=== PATIENT | female | born 1955 | race Caucasian/White ===

== ENCOUNTER 2017-10-05 13:38 | Emergency (ER) | payer SELFPAY ==
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
[2017-10-05] MEDS ORDERED: NOREPINEPHRINE BITARTRATE INJ/PF 4 MG/4 ML SDV IV ONE (14:00)
--- NOTE | 2017-10-05 14:16 | RADIOLOGY REPORT (SQ) ---
EXAM DESCRIPTION: CHEST SINGLE VIEW COMPLETED DATE/TIME: 10/05/2017 2:08 pm REASON FOR STUDY: post arrest , intubation COMPARISON: 03/26/2013. EXAM PARAMETERS: NUMBER OF VIEWS: One view. TECHNIQUE: Single frontal radiographic view of the chest acquired. RADIATION DOSE: NA LIMITATIONS: None. FINDINGS: LUNGS AND PLEURA: Diffuse hazy opacity throughout both lungs, slightly more prominent in t he left lower lobe. No large pleural effusion. No pneumothorax. MEDIASTINUM AND HILAR STRUCTURES: No masses. Contour normal. HEART AND VASCULAR STRUCTURES: Heart normal in size. Normal vasculature. BONES: No acute findings. HARDWARE: Endotracheal tube with the tip located 3 cm proximal to the jose francisco. OTHER: No other significant finding. IMPRESSION: ENDOTRACHEAL TUBE IN SATISFACTORY POSITION. DIFFUSE HAZY OPACITY THROUGHOUT BOTH LUNGS, POSSIBLY DUE TO PULMONARY EDEMA. UNDERLYING PNEUMONIA, PARTICULARLY IN THE LEFT LOWER LOBE, ALSO PO SSIBLE. TECHNICAL DOCUMENTATION: JOB ID: [id number] [employer]- All Rights Reserved Reading location - IP/workstation name: [email or web address]
[2017-10-05] MEDS ORDERED: PROPOFOL 0 MG/0 ML INFUS..BTL IV ONE (14:20)
[2017-10-05] MEDS ORDERED: MIDAZOLAM HCL 50 MG/100 ML RTUINJ ONE (14:22)
[2017-10-05 14:23] LABS: HEMATOCRIT 43.6 % (36.0-47.0); HEMOGLOBIN 13.8 g/dL (12.0-15.5); MEAN CORPUSCULAR HGB CONC 31.6 g/dL (32.0-36.0); MEAN CORPUSCULAR VOLUME 98 fl (80-97); PLATELET COUNT 172 10^3/uL (150-450); RED BLOOD COUNT 4.45 10^6/uL (3.72-5.28); RED CELL DISTRIBUTION WIDTH 15.1 % (11.5-14.0); WHITE BLOOD COUNT 13.8 10^3/uL (4.0-10.5)
[2017-10-05 14:25] LABS: VENOUS BLOOD HCO3 17.4 mmol/L (20-32); VENOUS BLOOD PCO2 47.9 mmHg (35-63)
[2017-10-05 14:27] LABS: VENOUS BLOOD PH 7.18 (7.30-7.42)
[2017-10-05] MEDS ORDERED: FENTANYL CITRATE INJ/PF 100 MCG/2 ML AMPUL ONE ×2 (14:28→15:10)
[2017-10-05 14:43] LABS: CREATINE KINASE MB 8.22 ng/mL (<4.55)
[2017-10-05 14:45] LABS: TROPONIN I 0.647 ng/mL
[2017-10-05 14:48] LABS: ABSOLUTE LYMPHOCYTES# (MANUAL) 7.2 10^3/uL (0.5-4.7); ABSOLUTE NEUTROPHILS# (MANUAL) 6.6 10^3/uL (1.7-8.2); BAND NEUTROPHILS % (MANUAL) 4 % (3-5); BASOPHILS % (MANUAL) 0 % (0-2); EOSINOPHILS % (MANUAL) 0 % (0-6); LYMPHOCYTES % (MANUAL) 49 % (13-45); MONOCYTES % (MANUAL) 0 % (3-13); NUCLEATED RED BLOOD CELLS 1 /100 WBC (0); SEGMENTED NEUTROPHILS % (MAN) 44 % (42-78); TOTAL CELLS COUNTED 100
[2017-10-05 14:49] LABS: PLATELET COMMENT ADEQUATE; TOXIC GRANULATION SLIGHT; TOXIC VACUOLATION PRESENT
[2017-10-05 15:44] VITALS: BP 92/73
[2017-10-05] MEDS ORDERED: NORMAL SALINE 1000 ML 1,000 ML IV ONE ×2 (15:47→15:48)
--- NOTE | 2017-10-05 22:20 | EKG REPORT ---
SEVERITY:- ABNORMAL ECG - JUNCTIONAL ESCAPE RHYTHM LEFT BUNDLE BRANCH BLOCK : Confirmed by: Shayy Nwesome 05-Oct-2017 22:19:39
== END 2017-10-05 16:35 | disposition short-term general hospital (02) ==
LOC: ER 13:38
DX: I46.9 Cardiac arrest, cause unspecified (principal)
CPT/HCPCS: 93005; 99285; 96361; 51702; 96374; 36415; 82553; 85025; 84484; 82803; 71045; 94660; 93010; J3010; J3490; J2250; J7030